=== PATIENT | male | born 2000 | race Two or more races ===

== ENCOUNTER 2020-03-19 09:52 | Outpatient (CLI) | payer OTHER | END 2020-03-19 10:30 | disposition home or self-care (01) | LOC: OFIC 805 09:52 | PROVIDERS: ATTEND Otolaryngology Otology & Neurotology | DX: H66.92 Otitis media, unspecified, left ear (principal); H60.8X2 Other otitis externa, left ear; H61.22 Impacted cerumen, left ear ==